=== PATIENT | male | born 1965 | race Caucasian/White ===

== ENCOUNTER 2024-05-04 19:40 | Emergency (ER) | payer OTHER ==
[2024-05-04] MEDS ORDERED: Ketorolac Tromethamine 30 MG (1 mL) VIAL ONE (20:23)
[2024-05-04] MEDS ORDERED: methylPREDNISolone Sod Succ/PF 125 MG/2 ML VIAL ONE (20:23)
[2024-05-04] MEDS ORDERED: Orphenadrine Citrate 60 MG/2 ML VIAL ONE (20:52)
== END 2024-05-04 21:45 | disposition home or self-care (01) ==
LOC: CSHERS 19:40
DX: S39.012A Strain of muscle, fascia and tendon of lower back, initial encounter (principal); X50.0XXA Overexertion from strenuous movement or load, initial encounter; M47.22 Other spondylosis with radiculopathy, cervical region; M50.30 Other cervical disc degeneration, unspecified cervical region; G89.29 Other chronic pain
CPT/HCPCS: 72141; 96372; 99283; J1885; J2360; J2919